=== PATIENT | male | born 2000 | race African-American/Black ===

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

== ENCOUNTER 2021-08-15 03:13 | Emergency (ER) | payer MEDICAID, SELFPAY ==
--- NOTE | ~2021-08-15 | XR_ITS ---
EXAMINATION: XR shoulder RT 1V DATE: 08/15/2021 03:58 INDICATION: Right shoulder dislocation. TECHNIQUE: A single view of right shoulder was obtained. COMPARISON: Right shoulder radiographs 05/22/2020 FINDINGS: There is abduction and external rotation of the humerus. There is dislocation at the glenoh umeral joint. Acromioclavicular joint is normal. IMPRESSION: 1. Glenohumeral joint dislocation. Reviewed, dictated and finalized at location A. ONHOLER
--- NOTE | ~2021-08-15 | XR_ITS ---
EXAMINATION: XR shoulder RT min 2V DATE: 08/15/2021 04:38 INDICATION: Right shoulder dislocation status post reduction. TECHNIQUE: 2 views of right shoulder were obtained. COMPARISON: None. FINDINGS: Bone alignment is normal. No fracture. Joint spaces are normal. IMPRESSION: 1. Normal alignment at glenohumeral joint. Reviewed, dictated and finalized at location A. STRIAL RENDERER
[2021-08-15 03:22] VITALS: BP 120/68; PULSE 74; RESP 16; TEMP 36.6; O2SAT 100
[2021-08-15] MEDS: ONDANSETRON INJ 4 MG/2 ML VIAL IV PUSH (04:13)
[2021-08-15] MEDS: HYDROmorphone HCL INJ (*CRX) 1 MG/ML SYR IV PUSH (04:13)
[2021-08-15 04:39] VITALS: BP 112/73; PULSE 64; RESP 12; O2SAT 100
--- NOTE | 2021-08-15 04:55 | ED.UPPEXIN ---
HPI - Extremity Injury (Upper) General Chief Complaint: Extremity Injury, Upper Stated Complaint: shoulder pain Time Seen by Provider: 08/15/21 03:20 Source: patient and RN notes reviewed Mode of arrival: EMS Limitations: no limitations History of Present Illness HPI narrative: This is a 20 year old left hand dominant male who presents for evaluation of right shoulder dislocation. He states he woke up just prior to arrival unable to move is right arm. He was sleeping with right hand behind his head and felt a pop. HE had similar pain 1 year ago when he suffered a dislocation. Denies numbness tingling only unable to move right shoulder. Related Data Allergies Allergy/AdvReac Type Severity Reaction Status Date / Time clindamycin Allergy Swelling Verified 08/15/21 03:26 of Lip/Tongue/Throat Review of Systems Review of Systems: All systems reviewed & are unremarkable except as noted in HPI and below PMFSH Past Medical History Medical History (Updated 08/15/21 @ 08:20 by Ryann Vargas MD) Recurrent dislocation, right shoulder Surgical History Surgical History (Updated 08/15/21 @ 04:57 by Ryann Vargas MD) No pertinent past surgical history Social History Social History (Updated 08/15/21 @ 04:57 by Ryann Vargas MD) Smoking status: Never smoker Gender identity (if verbalized by the patient): Male Exam Const: General: alert Orientation/consciousness: patient oriented x3 Eyes: EOM: EOMs intact bilaterally Chest: Chest palpation & inspection: normal inspection of the chest Resp: Effort & Inspection: normal respiratory effort and no retractions Auscultation: clear to auscultation bilaterally Cardio: Rate: regular rate Rhythm: regular rhythm Heart sounds: no murmurs Other: right radial pulse 2 + Skin: General skin exam: normal color Rashes: no rashes Neuro: General: patient oriented x3, moves all extremities and CN's II-XI intact bilaterally Extrem: Other: right arm with shoulder abducted with hand behind head. able to move fingers distal. neurovascular intact Psych: Mental Status: mental status grossly normal Affect: normal affect Course Reevaluation(s) Reevaluation #1: I was able to reduce patient's shoulder with pain medication and manual reduction. He has been placed in shoulder immobilizer. Date: 08/15/21 Time: 04:58 Vital Signs Vital signs: Vital Signs Temperature 97.9 F 08/15/21 03:22 Pulse Rate 74 08/15/21 03:22 Respiratory Rate 16 08/15/21 03:22 Blood Pressure 120/68 08/15/21 03:22 Pulse Oximetry 100 08/15/21 03:22 Temperature 97.9 F 08/15/21 03:22 Pulse Rate 64 08/15/21 06:25 Respiratory Rate 15 08/15/21 06:25 Blood Pressure 114/65 08/15/21 06:25 Pulse Oximetry 99 08/15/21 06:25 Procedures Orthopedic Joint Reduction Joint #1: Orthopedic Joint Reduction Date: 08/15/21 Orthopedic Joint Reduction Time: 04:30 Side: right Joint Reduction Location: shoulder Analgesia: other (IV pain medicatoin) Pre-Procedure Neuro Vascular Exam: normal Technique used: direct manipulation Post-reduction neuro exam: intact Post-reduction vascular: intact Post Reduction X-Ray Obtained: Yes Post Reduction X-Ray Results: reduced Splint Applied: Yes Patient Tolerated Procedure: well MDM - Extremity Injury (Upper) Imaging Data Attestation: I personally reviewed and interpreted this imaging study as follows: My impression: right shoulder xray- possible dislocation right shoulder post reduction- no dislocation, successful reduction Discharge Plan Discharge Clinical Impression: Closed dislocation of right shoulder Patient Disposition: Home, Self-Care Condition: Stable Instructions: Antibiotic Form, Shoulder Dislocation (ED), Shoulder Immobilizer (ED) Additional Instructions: Please call the orthopedic surgeon to arrange for evalua
[2021-08-15 05:34] VITALS: BP 115/68; PULSE 62; RESP 18; O2SAT 98
[2021-08-15 06:25] VITALS: BP 114/65; PULSE 64; RESP 15; O2SAT 99
== END 2021-08-15 06:26 | disposition home or self-care (01) ==
PROVIDERS: Emergency Provider General Practice
DX: M24.411 Recurrent dislocation, right shoulder (principal)
CPT/HCPCS: 23650; 73020; 73030; 96374; 96375; 99285; A4565; J1170; J2405

== ENCOUNTER 2022-04-25 17:40 | Emergency (ER) | payer MEDICAID, SELFPAY ==
[2022-04-25 17:42] VITALS: BP 117/60; PULSE 87; RESP 16; TEMP 36.6; O2SAT 100
--- NOTE | 2022-04-25 18:13 | ED.GENADULT ---
HPI - General Adult General Chief complaint: Extremity Problem,Nontraumatic Stated complaint: ingrown toenail Time Seen by Provider: 04/25/22 18:08 History of Present Illness HPI narrative: 21-year-old male presented the emergency department for evaluation of bilateral great toe ingrown toenails. Patient states that he did clip his toenails too short. Patient had acute pain of the left great toenail and has had a persistent ingrown toenail on the right for the last few weeks. Related Data Allergies Allergy/AdvReac Type Severity Reaction Status Date / Time clindamycin Allergy Swelling Verified 04/25/22 17:44 of Lip/Tongue/Throat Review of Systems Review of Systems: CONSTITUTIONAL: Denies fever, chills, or sweats. SKIN: Irritation of the skin on bilateral great toes MUSCULOSKELETAL: See HPI NEUROLOGIC: Denies headache, numbness, or weakness. All systems reviewed & are unremarkable except as noted in HPI and below PMFSH Past Medical History Medical History (Updated 04/25/22 @ 18:17 by Paco Downey MD) Recurrent dislocation, right shoulder Surgical History Surgical History (Updated 08/15/21 @ 04:57 by Ryann Vargas MD) No pertinent past surgical history Social History Social History (Updated 08/15/21 @ 04:57 by Ryann Vargas MD) Smoking status: Never smoker Gender identity (if verbalized by the patient): Male Exam Narrative: APPEARANCE: Well appearing, no pain, no distress, well-nourished. HEAD: normocephalic, atraumatic. EYES: PERRLA/EOMI, conjunctivae clear. NECK: Supple. No adenopathy, no masses. RESPIRATORY: Airway patent, respirations nonlabored. Clear to auscultation bilaterally, no rales, rhonchi, wheezing. CARDIOVASCULAR: Regular rate and rhythm without murmurs rubs or gallops. ABDOMINAL: Soft, nontender, nondistended, normal bowel sounds MUSCULOSKELETAL: Ingrown toenails bilaterally on the great toes. Worse on the right than left SKIN: Warm, dry. Normal Color. Normal-appearing skin of the great toe on the left and mild erythema of the great toe of the right PSYCHIATRIC: Normal affect/mood. Course Vital Signs Vital signs: Vital Signs Temperature 97.8 F 04/25/22 17:42 Pulse Rate 87 04/25/22 17:42 Respiratory Rate 16 04/25/22 17:42 Blood Pressure 117/60 04/25/22 17:42 Pulse Oximetry 100 04/25/22 17:42 Temperature 98.3 F 04/25/22 18:27 Pulse Rate 72 04/25/22 18:27 Respiratory Rate 16 04/25/22 18:27 Blood Pressure 118/68 04/25/22 18:27 Pulse Oximetry 100 04/25/22 18:27 Medical Decision Making Vital Signs Vital Signs: Vital Signs Temperature 97.8 F 04/25/22 17:42 Pulse Rate 87 04/25/22 17:42 Respiratory Rate 16 04/25/22 17:42 Blood Pressure 117/60 04/25/22 17:42 Pulse Oximetry 100 04/25/22 17:42 Temperature 98.3 F 04/25/22 18:27 Pulse Rate 72 04/25/22 18:27 Respiratory Rate 16 04/25/22 18:27 Blood Pressure 118/68 04/25/22 18:27 Pulse Oximetry 100 04/25/22 18:27 Discharge Plan Discharge Clinical Impression: Ingrown toenail Patient Disposition: Home, Self-Care Condition: Stable Instructions: Antibiotic Form, Ingrown Nail (ED) Additional Instructions: Antibiotic as directed. Epson salt soaks as directed. Have close follow-up with podiatry. Prescriptions: New amoxicillin-pot clavulanate 875-125 mg tablet 1 tablet PO Q12H Qty: 14 0RF No Action naproxen 375 mg tablet,delayed release (DR/EC) 375 mg PO BID PRN (Reason: pain) Qty: 20 0RF Follow-up/Referrals: Davey Vanessa JR, MD [Physician] - UNKNOWN,DOCTOR [Non-Staff] -
[2022-04-25] MEDS: AMOXICILLIN/CLAVULANATE K 875-125 MG TAB 1 TABLET PO (18:25)
[2022-04-25 18:27] VITALS: BP 118/68; PULSE 72; RESP 16; TEMP 36.8; O2SAT 100
== END 2022-04-25 18:44 | disposition home or self-care (01) ==
LOC: ANHED 18:37
PROVIDERS: Emergency Provider Emergency Medicine
DX: L60.0 Ingrowing nail (principal)
CPT/HCPCS: 99283; A9270

== ENCOUNTER 2022-04-27 14:51 | Emergency (ER) | payer MEDICAID, SELFPAY ==
[2022-04-27 15:01] VITALS: BP 92/70; PULSE 63; RESP 20; TEMP 36.8; O2SAT 100
--- NOTE | 2022-04-27 15:03 | ED.SKABFB ---
HPI - Skin/Abscess/Foreign Bdy General Chief complaint: Wound/Laceration Stated complaint: both big toes ingrown toenail Time Seen by Provider: 04/27/22 15:04 Source: patient and RN notes reviewed Mode of arrival: ambulatory Limitations: no limitations History of Present Illness HPI narrative: 21-year-old male presents concern for ingrown toenails on the fourth digits of bilateral feet. Reports he was seen in the emergency room yesterday was prescribed an antibiotic and told to do warm soaks. Reports he took 1 dose of the antibiotic, he has not done warm soaks. He reports his symptoms have not changed since yesterday. MD complaint: other (Ingrown toenail) Related Data Allergies Allergy/AdvReac Type Severity Reaction Status Date / Time clindamycin Allergy Swelling Verified 04/27/22 15:07 of Lip/Tongue/Throat Review of Systems Review of Systems: CONSTITUTIONAL: Denies malaise, chills, sweats, or fever. SKIN: Reports pain in the first digits of bilateral feet due to ingrown toenails MUSCULOSKELETAL: Denies joint pain or myalgia. All systems reviewed & are unremarkable except as noted in HPI and below PMFSH Past Medical History Medical History (Updated 04/27/22 @ 15:34 by Jeri García NP) Recurrent dislocation, right shoulder Surgical History Surgical History (Updated 08/15/21 @ 04:57 by Ryann Vargas MD) No pertinent past surgical history Social History Social History (Updated 08/15/21 @ 04:57 by Ryann Vargas MD) Smoking status: Never smoker Gender identity (if verbalized by the patient): Male Comments At time of signature, agree with nursing past medical, surgical, social and family history. There is no relevant family history pertinent to the presenting complaint Exam Narrative: GENERAL: Well-appearing, well-nourished, and in no acute distress. HEAD: Normocephalic, atraumatic. EYES: PERRLA, conjunctivae clear, and EOMI. ENT: Mucous membranes moist. Oropharynx without edema, erythema or lesions. NECK: Supple. No lymphadenopathy CHEST: Clear to auscultation. No respiratory distress. HEART: Regular rate and rhythm. SKIN: Warm, dry. The first digit of the right foot has inflammation, edema, evident purulence and fluctuation to the lateral edge of the nailbed; mild edema noted to the medial edge of the nailbed of the first digit of the left foot without evident purulence NEURO: Alert and oriented x3. PSYCH: Normal mood and affect Course Course Emergency Course: Discussed expectations with patient of improvement after starting an antibiotic and that his symptoms would likely not improve after 1 dose. Agreed to radha the purulent area of the right toe. Advised patient that he needs to continue taking antibiotics, follow the advice of the emergency room physician by doing warm soaks and follow-up with podiatry for further treatment. Patient is aware of diagnosis, understands and agrees to treatment plan. Anticipatory guidance given. Patient agrees to follow-up as directed and is aware of reasons to seek care at the emergency department. Portions of this record may have been created with voice recognition software Level of Care: Express Care Visit Vital Signs Vital signs: Vital Signs Temperature 98.3 F 04/27/22 15:01 Pulse Rate 63 04/27/22 15:01 Respiratory Rate 20 04/27/22 15:01 Blood Pressure 92/70 L 04/27/22 15:01 Pulse Oximetry 100 04/27/22 15:01 Temperature 98.3 F 04/27/22 15:01 Pulse Rate 63 04/27/22 15:01 Respiratory Rate 20 04/27/22 15:01 Blood Pressure 92/70 L 04/27/22 15:01 Pulse Oximetry 100 04/27/22 15:01 Reviewed. Procedures Abscess I/D lower extremity: Date of Incision: 04/27/22 Time of Incision: 15:32 Side (if applicable): right Local Anesthetic: none (Emla cream) Amount of anesthesia used (mL): 2 Technique: needle aspiration Amount of fluid expressed (mL): 1 Irrigati
[2022-04-27] MEDS: LIDOCAINE/PRILOCAINE CREAM 2.5-2.5% TUBE 1 EACH TOPICAL (15:21)
== END 2022-04-27 15:43 | disposition home or self-care (01) ==
PROVIDERS: Emergency Provider Nurse Practitioner
DX: L03.031 Cellulitis of right toe (principal); L60.0 Ingrowing nail
CPT/HCPCS: 10160; 99212; G0463